=== PATIENT | female | born 1975 | race Caucasian/White ===

== ENCOUNTER 2022-12-15 18:49 | Emergency (ER) | payer SELFPAY ==
[~2022-12-15] VITALS: Ht 152.4 cm; Wt 91.0 kg
[2022-12-15 19:05] VITALS: BP 150/73
[2022-12-15] MEDS ORDERED: AMOX-494 MT (23:29)
[2022-12-15] MEDS ORDERED: T3 PO (23:29)
[2022-12-15] MEDS ORDERED: KETOROLAC 30MG/ML VIAL IM ONE (23:45)
== END 2022-12-16 00:29 | disposition home or self-care (01) ==
LOC: ER 21:23
DX: K08.89 Other specified disorders of teeth and supporting structures (principal); R51.9 Headache, unspecified; H92.01 Otalgia, right ear; R03.0 Elevated blood-pressure reading, without diagnosis of hypertension
CPT/HCPCS: 96372; 99283; J1885

== ENCOUNTER 2024-03-17 00:34 | Emergency (ER) | payer MEDICAID, OTHER ==
[~2024-03-17] VITALS: Ht 152.4 cm; Wt 96.0 kg
[~2024-03-17 00:34] MED LIST: AMOX-494 MT; T3 PO
[2024-03-17 01:09] VITALS: O2SAT 100
[2024-03-17 02:05] LABS: CLARITY URINE CLEAR (CLEAR); COLOR URINE ORANGE (YELLOW); GLUCOSE URINE NEGATIVE (NEGATIVE); KETONES URINE NEGATIVE (NEGATIVE); LEUKOCYTE ESTERASE URINE 3+ (NEGATIVE); NITRITE URINE NEGATIVE (NEGATIVE); OCCULT BLOOD URINE 3+ (NEGATIVE); PROTEIN URINE TRACE (NEGATIVE); SPECIFIC GRAVITY URINE 1.006 (1.005-1.030); UROBILINOGEN URINE 0.2 E.U./dL (0.2-1.0)
[2024-03-17] MEDS ORDERED: CEFP200T13 MT (02:53)
[2024-03-17 03:12] VITALS: BP 158/91; PULSE 82; RESP 15; TEMP 97.9
[2024-03-17 03:42] LABS: SQUAMOUS EPITHELIAL CELL URINE FEW /lpf (RARE/1+); WBC URINE 25-50 /hpf (0-2)
[2024-03-17 03:43] LABS: BACTERIA URINE 1+
== END 2024-03-17 03:12 | disposition home or self-care (01) ==
LOC: ER 00:34
DX: N12 Tubulo-interstitial nephritis, not specified as acute or chronic (principal); E11.9 Type 2 diabetes mellitus without complications
CPT/HCPCS: 81003; 81025; 87077; 87186; 99283